=== PATIENT | female | born 1990 | race American Indian/Alaskan Native ===

== ENCOUNTER 2017-06-20 23:31 | Emergency (ER) | payer BC, MEDICAID ==
[2017-06-20 23:31] VITALS: BMI 21.1
[2017-06-20 23:39] VITALS: BP 121/82; PULSE 67; RESP 16; TEMP 98.8; O2SAT 100
--- NOTE | 2017-06-21 00:01 | C.PDOC ---
History Of Present Illness The patient reports pain to the left ankle over the past 1 day. The patient reports that the pain progressively worsened over the past day, and is associated with swelling prompting visit. Denies trauma, numbness, weakness. Time Seen by Provider: 06/20/17 23:41 Chief Complaint (Nursing): Lower Extremity Problem/Injury History Per: Patient History/Exam Limitations: no limitations Onset/Duration Of Symptoms: Persistent Current Symptoms Are (Timing): Still Present Recent travel outside of the [place]: No - Ankle/Foot Alleviating Factor(s): Elevation Past Medical History Reviewed: Historical Data, Nursing Documentation, Vital Signs Vital Signs: Last Vital Signs Temp 98.8 F 06/20/17 23:36 Pulse 67 06/20/17 23:36 Resp 16 06/20/17 23:36 BP 121/82 06/20/17 23:36 Pulse Ox 100 06/21/17 00:31 - Medical History PMH: Asthma Denies: Chronic Kidney Disease Surgical History: Tonsillectomy (2016) Other Surgeries: Spine surgery Family History: States: Unknown Family Hx - Social History Hx Tobacco Use: Yes Hx Alcohol Use: Yes Hx Substance Use: Yes - Immunization History Hx Tetanus Toxoid Vaccination: No Hx Influenza Vaccination: Yes Hx Pneumococcal Vaccination: No Review Of Systems Constitutional: Negative for: Fever, Weakness Cardiovascular: Negative for: Edema Musculoskeletal: Positive for: Back Pain (after back surgery), Foot Pain Skin: Negative for: Rash Neurological: Negative for: Weakness, Numbness Physical Exam - Physical Exam Appears: Non-toxic, No Acute Distress Skin: Normal Color, Warm, No Rash Head: Atraumatic, Normacephalic Eye(s): bilateral: Normal Inspection Oral Mucosa: Moist Neck: Normal Extremity: No Calf Tenderness, Capillary Refill (< 2 sec), No Deformity, Other ( (+) mild swelling and tenderness to the lateral left ankle and foot. Normal ROM) Pulses: Left Dorsalis Pedis: Normal, Right Dorsalis Pedis: Normal Neurological/Psych: Oriented x3, Normal Motor, Normal Sensation Gait: Steady ED Course And Treatment O2 Sat by Pulse Oximetry: 100 (on RA) Pulse Ox Interpretation: Normal Medical Decision Making Medical Decision Making: Xrays of the foot and ankle are negative for fracture. There is possibility for sprain. Air cast and crutches were given to the patient. Patient was instructed to follow up with the Orthopedist within 1-2 days. Return if worsened, Disposition - Disposition Referrals: Rossy Curran MD [Staff Provider] - Disposition: HOME/ ROUTINE Disposition Time: 00:15 Condition: GOOD Additional Instructions: Follow up with the Orthopedist within 1-2 days. Return if worsened, Instructions: Ankle Sprain (ED) Forms: [facility] (Tanzanian) - Clinical Impression Clinical Impression: Ankle sprain
--- NOTE | 2017-06-21 08:08 | RAD ---
PROCEDURE: Left Ankle Radiographs. HISTORY: pain to the lateral foot and ankle COMPARISON: None FINDINGS: BONES: Normal. No fracture. JOINTS: Normal. No osteoarthritis. Ankle mortise maintained. Talar dome intact SOFT TISSUES: Lateral soft tissue swelling OTHER FINDINGS: None. IMPRESSION: No fracture. Lateral soft tissue swelling
--- NOTE | 2017-06-21 08:13 | RAD ---
PROCEDURE: Left Foot Radiographs. HISTORY: lateral foot swelling and pain COMPARISON: None. FINDINGS: BONES: No displaced fracture. No dislocation. Trabecular marking prominence versus a nondisplaced trabecular microfracture of the medial navicular bone is perceived. Most of the arrows delineating the area of concern appear distal to this site. There is some mild hindfoot medial soft tissue swelling present. Clinical correlation is essential regarding any further imaging decisions JOINTS: Normal. SOFT TISSUES: Normal. OTHER FINDINGS: None. IMPRESSION: No displaced fractures. No dislocation. Medial navicular bone appearance indeterminate regardingtrabecular marking prominence versus a nondisplaced trabecular microfracture of the medial navicular bone.
== END 2017-06-21 00:59 | disposition home or self-care (01) ==
LOC: C.ER 23:31
DX: S93.402A Sprain of unspecified ligament of left ankle, initial encounter (principal); X58.XXXA Exposure to other specified factors, initial encounter

== ENCOUNTER 2017-06-28 17:44 | Emergency (ER) | payer BC, MEDICAID ==
[2017-06-28 17:59] VITALS: BMI 21.6
[2017-06-28 18:47] LABS: RBC URINE 9 /hpf (0-3); URINE BACTERIA RARE (<OCC); URINE BILIRUBIN NEGATIVE (NEGATIVE); URINE BLOOD 2+ (NEGATIVE); URINE COLOR Yellow (YELLOW); URINE GLUCOSE (UA) NORMAL (Normal); URINE KETONE 2+ mg/dL (NEGATIVE); URINE LEUKOCYTE ESTERASE NEG Leu/uL (Negative); URINE PROTEIN 1+ mg/dL (NEGATIVE); URINE UROBILINOGEN NORMAL mg/dL (0.2-1.0); WBC URINE 3 /hpf (0-5)
--- NOTE | 2017-06-28 19:20 | C.PDOC ---
History Of Present Illness Patient presents to the ED with complaints of nausea, abdominal pain, generalized malaise, and constipation since yesterday. Patient states symptoms began when when she had chicken at a barbeque. She also notes rectal bleeding and "thinks its hemorrhoids." Patient denies fever, chills, or vomiting. Time Seen by Provider: 06/28/17 19:19 Chief Complaint (Nursing): Weakness/Neurological Deficit History Per: Patient History/Exam Limitations: no limitations Onset/Duration Of Symptoms: Days (1 day ) Current Symptoms Are (Timing): Still Present Context: Food Severity: Moderate Pain Scale Rating Of: 4 Location Of Pain/Discomfort: Epigastric Radiation Of Pain To:: None Quality Of Discomfort: "Pain" Associated Symptoms: Nausea, Constipation. denies: Fever, Chills, Vomiting, Diarrhea Exacerbating Factors: None Recent travel outside of the [place]: No Abnormal Vaginal Bleeding: No Past Medical History Reviewed: Historical Data, Nursing Documentation, Vital Signs Vital Signs: Last Vital Signs Temp 99.9 F H 06/28/17 20:07 Pulse 76 06/28/17 20:07 Resp 20 06/28/17 20:07 BP 101/56 L 06/28/17 21:33 Pulse Ox 100 06/28/17 23:29 - Medical History PMH: Asthma Surgical History: Tonsillectomy (2016) Family History: States: Unknown Family Hx - Social History Hx Tobacco Use: Yes Hx Alcohol Use: Yes Hx Substance Use: Yes - Immunization History Hx Tetanus Toxoid Vaccination: No Hx Influenza Vaccination: Yes Hx Pneumococcal Vaccination: No Review Of Systems Constitutional: Negative for: Fever, Chills Cardiovascular: Negative for: Chest Pain Respiratory: Negative for: Shortness of Breath Gastrointestinal: Positive for: Nausea, Abdominal Pain, Constipation. Negative for: Vomiting, Diarrhea Physical Exam - Physical Exam Appears: Non-toxic, No Acute Distress Skin: Warm, Dry Head: Normacephalic Eye(s): bilateral: Normal Inspection Oral Mucosa: Dry Neck: Supple Chest: Symmetrical Cardiovascular: Rhythm Regular Respiratory: No Rales, No Rhonchi, No Wheezing Gastrointestinal/Abdominal: Soft, Tenderness (mild epigastric tenderness), No Distention, No Guarding, No Rebound Rectal: No Hemorrhoids (with RN Cristine Workman present) Back: No CVA Tenderness Extremity: Normal ROM Extremity: Bilateral: Atraumatic, Normal Color And Temperature, Normal ROM Pulses: Left Dorsalis Pedis: Normal, Right Dorsalis Pedis: Normal Neurological/Psych: Oriented x3, Normal Speech, Normal Cognition Gait: Steady ED Course And Treatment - Laboratory Results Result Diagrams: 06/28/17 19:46 06/28/17 19:46 O2 Sat by Pulse Oximetry: 100 (room air ) Pulse Ox Interpretation: Normal Progress Note: Labs were ordered and patient was given Pepcid, Toradol, Zofran, and IV fluids. Reevaluation Time: 23:26 Medical Decision Making Medical Decision Making: Upon provider reevaluation patient is feeling better, is medically stable, and requires no further treatment in the ED at this time. Patient will be discharged home with Rx for flagyl and miralax. Counseling was provided and all questions were answered regarding diagnosis and need for follow up with the referred clinic. There is agreement to discharge plan. Return if symptoms persist or worsen. Disposition Counseled Patient/Family Regarding: Studies Performed, Diagnosis, Need For Followup, Rx Given - Disposition Referrals: [facility] [Outside] [facility] [Outside] Disposition: HOME/ ROUTINE Disposition Time: 19:20 Condition: FAIR Additional Instructions: Please return if symptoms recur. May need to have an ultrasound to check on the gallbladder(gallbladder sludge) Prescriptions: Metronidazole [Flagyl] 500 mg PO DAILY #21 tablet Polyethylene Glycol 3350 [Miralax] 17 gm PO DAILY #270 ml Instructions: Gas and Bloating (ED), Abdominal Pain (ED) Forms: [facility] (Cook Islander) - Clinical Impression Clinical Impression: Abdominal pain, Constipation - Scribe Statement The provider has reviewed the documentation as recorded by the Scribmahesh Emmanuel All medical record entries made by the Scribe were at my direction and personally dictated by me. I have reviewed the chart and agree that the record accurately reflects my personal performance of the history, physical exam, medical decision making, and the department course for this patient. I have also personally directed, reviewed, and agree with the discharge instructions and disposition.
[2017-06-28] MEDS ORDERED: Sodium Chloride 0.9% 2,000 ML IV ONE (19:37)
[2017-06-28 19:50] LABS: BASO % 0.2 % (0.0-2.0); EOS % 0.1 % (0.0-4.0); HEMATOCRIT 40.8 % (34.0-47.0); LYMPH # 1.2 K/uL (1.0-4.3); LYMPH % 11.2 % (20.0-40.0); MEAN CELL VOLUME 92.7 fL (81.0-99.0); MEAN CORPUSCULAR HEMOGLOBIN 31.1 pg (27.0-31.0); MEAN CORPUSCULAR HGB CONC 33.6 g/dL (33.0-37.0); MEAN PLATELET VOLUME 9.7 fL (7.2-11.7); MONO # 0.6 K/uL (0.0-0.8); MONO % 5.3 % (0.0-10.0); RED CELL DISTRIBUTION WIDTH 12.5 % (11.5-14.5)
[2017-06-28] MEDS ORDERED: Sodium Chloride 0.9% 1,000 ML ONE ×3 (19:50→23:04)
[2017-06-28 20:01] LABS: CHLORIDE 102 mmol/L (98-107); SODIUM 138 mmol/L (132-148)
[2017-06-28 20:02] LABS: POTASSIUM 3.9 mmol/L (3.6-5.2)
[2017-06-28 20:04] LABS: ALB/GLOB RATIO 1.1 (1.0-2.1); ALKALINE PHOSPHATASE 51 U/L (38-126); ALT/SGPT 33 U/L (9-52); AST/SGOT 22 U/L (14-36); BILIRUBIN,TOTAL 0.6 mg/dL (0.2-1.3); BLOOD UREA NITROGEN 12 mg/dL (7-17); CARBON DIOXIDE 22 mmol/L (22-30); GFR AFRICAN-AMERICAN > 60; GLUCOSE,RANDOM 73 mg/dL (65-105); TOTAL PROTEIN 8.6 g/dL (6.3-8.3)
[2017-06-28 20:05] LABS: CALCIUM 9.5 mg/dl (8.6-10.4)
[2017-06-28] MEDS ORDERED: Sodium Chloride 0.9% 1,000 ML IV ONE (23:05)
--- NOTE | 2017-06-28 23:20 | CT ---
EXAM: CT Abdomen and Pelvis Without Intravenous Contrast CLINICAL HISTORY: 26 years old, female; Pain and signs and symptoms; Nausea; Abdominal pain; Epigastric; Additional info: Abd pain, midepigastric TECHNIQUE: Axial computed tomography images of the abdomen and pelvis without intravenous contrast. All CT scans at this facility use one or more dose reduction techniques, viz.: automated exposure control; ma/kV adjustment per patient size (including targeted exams where dose is matched to indication; i.e. head); or iterative reconstruction technique. Coronal and sagittal reformatted images were created and reviewed. COMPARISON: No relevant prior studies available. Examination is limited secondary to the lack of intra-abdominal fat. FINDINGS: Lower thorax: The bilateral lung bases are clear. ABDOMEN: Liver: Steatosis. Gallbladder and bile ducts: The gallbladder is minimally distended, without calcified stones. Layering sludge is identified. No intra-extrahepatic biliary ductal dilation. Pancreas: Limited evaluation secondary to the lack of intravenous contrast. Spleen: No acute findings. Adrenals: No acute findings. Kidneys and ureters: No obstructing stones. No hydronephrosis. PELVIS: Bladder: No acute findings. Reproductive: No acute findings. Appendix: The appendix is not definitively visualized, however no pericecal inflammatory change is identified to suggest the presence of acute appendicitis. ABDOMEN and PELVIS: Stomach and bowel: Limited evaluation without intravenous / PO contrast or intra-abdominal fat. Peritoneum: No acute findings. Lymph nodes: Limited evaluation without intravenous contrast. Vasculature: No aortic aneurysm. Bones: No acute fracture. IMPRESSION: Limited examination secondary to the lack of oral or intravenous contrast, as well as the lack of intra-abdominal fat demonstrates layering sludge within the gallbladder. If patient is clinically able (and clinical suspicion persists) and, ultrasound examination of the right upper quadrant may be performed for further evaluation.
[2017-06-29] VITALS: BP 100/61; PULSE 78; RESP 18; TEMP 98; O2SAT 98
== END 2017-06-29 00:22 | disposition home or self-care (01) ==
LOC: C.ER 17:44
DX: K59.00 Constipation, unspecified (principal); R10.9 Unspecified abdominal pain
CPT/HCPCS: 74176; 80053; 81001; 83690; 84703; 85025; 96361; 96374; 96375; 99285; J1885; J2270; J2405; J7040

== ENCOUNTER 2017-10-03 21:03 | Emergency (ER) | payer BC, MEDICAID ==
[2017-10-03 21:04] VITALS: BMI 21.6
[2017-10-03] MEDS ORDERED: DiphenhydrAMINE 50 mg/ml Inj IVP STA (21:50)
[2017-10-03] MEDS ORDERED: DiphenhydrAMINE 50 mg/ml Inj ONE (22:10)
[2017-10-03 22:40] LABS: BASO % 0.4 % (0.0-2.0); EOS # 0.5 K/uL (0.0-0.7); EOS % 5.3 % (0.0-4.0); HEMATOCRIT 38.2 % (34.0-47.0); LYMPH # 1.6 K/uL (1.0-4.3); LYMPH % 16.6 % (20.0-40.0); MEAN CELL VOLUME 92.1 fL (81.0-99.0); MEAN CORPUSCULAR HEMOGLOBIN 30.9 pg (27.0-31.0); MEAN CORPUSCULAR HGB CONC 33.5 g/dL (33.0-37.0); MEAN PLATELET VOLUME 9.2 fL (7.2-11.7); MONO # 0.7 K/uL (0.0-0.8); MONO % 7.2 % (0.0-10.0); RED CELL DISTRIBUTION WIDTH 12.8 % (11.5-14.5); WHITE BLOOD COUNT 9.5 K/uL (4.8-10.8)
--- NOTE | 2017-10-03 22:42 | C.PDOC ---
History Of Present Illness 26 year old female presents to the ER with a complaint of a headache and photophobia that began yesterday morning, associated with a productive cough and subjective fever. Denies nausea, vomiting, or Hx of headaches. Patient is S/ P cholestectomy on 09/30/17 at [facility]. Mother states patient had a back surgery a few months ago and had similar symptoms afterwards. Time Seen by Provider: 10/03/17 21:33 Chief Complaint (Nursing): Headache History Per: Patient History/Exam Limitations: no limitations Onset/Duration Of Symptoms: Days Current Symptoms Are (Timing): Still Present Preceeding Symptoms: None Associated Symptoms: Photophobia. denies: Blurred Vision, Nausea, Vomiting, Extremity Weakness Recent travel outside of the [place]: No Past Medical History Reviewed: Historical Data, Nursing Documentation, Vital Signs Vital Signs: Last Vital Signs Temp 99.5 F 10/04/17 04:25 Pulse 84 10/04/17 04:25 Resp 18 10/04/17 04:25 BP 128/64 10/04/17 04:25 Pulse Ox 97 10/04/17 04:25 - Medical History PMH: Asthma Surgical History: Cholecystectomy (09/2017), Tonsillectomy (2015) Family History: States: Unknown Family Hx - Social History Hx Tobacco Use: Yes Hx Alcohol Use: Yes Hx Substance Use: Yes - Immunization History Hx Tetanus Toxoid Vaccination: No Hx Influenza Vaccination: Yes Hx Pneumococcal Vaccination: No Review Of Systems Constitutional: Positive for: Fever (Subjective) Eyes: Negative for: Vision Change Respiratory: Positive for: Cough (Productive) Gastrointestinal: Negative for: Nausea, Vomiting Physical Exam - Physical Exam Appears: Non-toxic Skin: Normal Color, Warm, Dry Head: Atraumatic, Normacephalic Eye(s): bilateral: Normal Inspection, PERRL, EOMI Oral Mucosa: Moist Neck: Normal, Supple Chest: Symmetrical, No Tenderness Cardiovascular: Rhythm Regular Respiratory: Normal Breath Sounds, No Rales, No Rhonchi, No Wheezing Gastrointestinal/Abdominal: Soft, No Tenderness Neurological/Psych: Oriented x3, Normal Speech ED Course And Treatment - Laboratory Results Result Diagrams: 10/04/17 03:09 10/03/17 22:32 Pulse Ox Interpretation: Normal Progress Note: pt has been resting / sleeping for the past few hours. No distress. Headache imrpoved. Medical Decision Making Medical Decision Making: Plan: * CMP * UDS * CBC * Upreg * UA * Benadryl * Reglan * Toradol On reevaluation, patient reports improvement of pain, feels comfortable being discharged home. Disposition - Disposition Referrals: [facility] [Outside] [facility] [Outside] [facility] [place] [Outside] [facility] [Outside] Disposition: HOME/ ROUTINE Disposition Time: 06:17 Condition: GOOD Additional Instructions: follow up with surgeon as directed and with pmd. Instructions: Acute Headache (ED) Forms: [employer] (Spanish) - Clinical Impression Clinical Impression: Migraine - Scribe Statement The provider has reviewed the documentation as recorded by the Scribe Jett Tilley All medical record entries made by the Sonjaibe were at my direction and personally dictated by me. I have reviewed the chart and agree that the record accurately reflects my personal performance of the history, physical exam, medical decision making, and the department course for this patient. I have also personally directed, reviewed, and agree with the discharge instructions and disposition.
[2017-10-03 22:51] LABS: ALB/GLOB RATIO 0.8 (1.0-2.1); ALKALINE PHOSPHATASE 46 U/L (38-126); ALT/SGPT 45 U/L (9-52); AST/SGOT 16 U/L (14-36); BILIRUBIN,TOTAL 0.4 mg/dL (0.2-1.3); BLOOD UREA NITROGEN 8 mg/dL (7-17); CALCIUM 8.3 mg/dl (8.6-10.4); CARBON DIOXIDE 33 mmol/L (22-30); CHLORIDE 101 mmol/L (98-107); GFR AFRICAN-AMERICAN > 60; GLUCOSE,RANDOM 105 mg/dL (65-105); POTASSIUM 3.4 mmol/L (3.6-5.2); SODIUM 137 mmol/L (132-148); TOTAL PROTEIN 7.9 g/dL (6.3-8.3)
[2017-10-03 23:10] LABS: RBC URINE 15 /hpf (0-3); URINE BACTERIA OCC (<OCC); URINE BILIRUBIN NEGATIVE (NEGATIVE); URINE BLOOD 2+ (NEGATIVE); URINE COLOR Yellow (YELLOW); URINE GLUCOSE (UA) NORMAL (Normal); URINE KETONE NEGATIVE (NEGATIVE); URINE LEUKOCYTE ESTERASE 3+ Leu/uL (Negative); URINE PROTEIN NEGATIVE (NEGATIVE); URINE UROBILINOGEN NORMAL mg/dL (0.2-1.0); WBC URINE 18 /hpf (0-5)
[2017-10-04 02:47] VITALS: RESP 18
[2017-10-04 03:17] LABS: BASO % 0.4 % (0.0-2.0); EOS # 0.5 K/uL (0.0-0.7); EOS % 5.5 % (0.0-4.0); HEMATOCRIT 37.6 % (34.0-47.0); LYMPH # 1.7 K/uL (1.0-4.3); LYMPH % 18.4 % (20.0-40.0); MEAN CELL VOLUME 91.5 fL (81.0-99.0); MEAN CORPUSCULAR HEMOGLOBIN 30.7 pg (27.0-31.0); MEAN CORPUSCULAR HGB CONC 33.6 g/dL (33.0-37.0); MEAN PLATELET VOLUME 9.4 fL (7.2-11.7); MONO # 0.6 K/uL (0.0-0.8); MONO % 6.7 % (0.0-10.0); RED CELL DISTRIBUTION WIDTH 12.6 % (11.5-14.5); WHITE BLOOD COUNT 9.5 K/uL (4.8-10.8)
[2017-10-04 03:32] LABS: INR 1.2
[2017-10-04] MEDS ORDERED: Morphine 4 MG/ML VIAL ONE (04:21)
--- NOTE | 2017-10-04 04:29 | CT ---
EXAM: CT Cervical Spine Without Intravenous Contrast CLINICAL HISTORY: 26 years old, female; Pain; Neck pain; Prior surgery; Surgery type: Lower abd; Patient HX: 05-23-16; Additional info: Headache TECHNIQUE: Axial computed tomography images of the cervical spine without intravenous contrast. All CT scans at this facility use one or more dose reduction techniques, viz.: automated exposure control; ma/kV adjustment per patient size (including targeted exams where dose is matched to indication; i.e. head); or iterative reconstruction technique. Coronal and sagittal reformatted images were created and reviewed. COMPARISON: CT - NECK SOFT TISSUE W/O CONTRAST 2016-05-23 19:48 FINDINGS: Artifacts: Overlying clothing artifact. Artifacts from hair piece. Vertebrae: Unremarkable. No acute fracture. Discs/spinal canal/neural foramina: No acute findings. No spinal canal stenosis. Soft tissues: Unremarkable. Thyroid: Mild prominence of thyroid gland. Lung apices: Unremarkable. IMPRESSION: There is no acute fracture of cervical spine.
--- NOTE | 2017-10-04 04:33 | CT ---
EXAM: CT Head Without Intravenous Contrast CLINICAL HISTORY: 26 years old, female; Pain; Headache; Prior surgery; Surgery type: Lower abd; Patient HX: 05-23-16 TECHNIQUE: Axial computed tomography images of the head/brain without intravenous contrast. All CT scans at this facility use one or more dose reduction techniques, viz.: automated exposure control; ma/kV adjustment per patient size (including targeted exams where dose is matched to indication; i.e. head); or iterative reconstruction technique. 723 images are submitted. Coronal and sagittal reformatted images were created and reviewed. COMPARISON: CT - HEAD W/O CONTRAST 2016-05-23 19:46 FINDINGS: Brain: Unremarkable. No hemorrhage. No significant white matter disease. No edema. Ventricles: Unremarkable. No ventriculomegaly. Bones/joints: Unremarkable. No acute fracture. Soft tissues: There is scattered calcific density involving the subcutaneous soft tissues likely representing calcifications. Sinuses: Unremarkable. No acute sinusitis. Mastoid air cells: Unremarkable. No mastoid effusion. Orbits: The globe and lens are intact. IMPRESSION: No evidence of an acute intracranial hemorrhage, midline shift or mass effect is identified.
[2017-10-04 06:42] VITALS: BP 104/62; PULSE 62; TEMP 99.3; O2SAT 99
--- NOTE | 2017-10-04 08:59 | RAD ---
HISTORY: Shortness of breath COMPARISON: 07/22/2016 TECHNIQUE: Chest PA and lateral FINDINGS: LUNGS: No focal infiltrate or effusion. Bibasilar breast and nipple shadows. PLEURA: No significant pleural effusion identified. No pneumothorax apparent. CARDIOVASCULAR: Normal. OSSEOUS STRUCTURES: No significant abnormalities. VISUALIZED UPPER ABDOMEN: Normal. OTHER FINDINGS: None. IMPRESSION: No focal infiltrate or effusion. Bibasilar breast and nipple shadows.
== END 2017-10-04 06:42 | disposition home or self-care (01) ==
LOC: C.ER 21:03
DX: G43.909 Migraine, unspecified, not intractable, without status migrainosus (principal)
CPT/HCPCS: 70450; 71020; 72125; 80053; 81001; 83690; 84703; 85025; 85610; 85730; 96374; 96375; 99285; G0480; J1200; J1885; J2270; J2405; J2765

== ENCOUNTER 2017-11-12 18:45 | Emergency (ER) | payer BC, MEDICAID ==
[2017-11-12 18:46] VITALS: BMI 21.6
--- NOTE | 2017-11-12 20:11 | C.PDOC ---
History Of Present Illness Patient presents to the ER with a complaint of abdominal pain and purulent discharge coming from her umbilicus. Patient had a lap onelia done on 09/30/17 and since then has noticed increased swelling to the periumbilical area. Denies fever or chills. Time Seen by Provider: 11/12/17 20:11 Chief Complaint (Nursing): Abdominal Pain History Per: Patient History/Exam Limitations: no limitations Onset/Duration Of Symptoms: Days Current Symptoms Are (Timing): Still Present Severity: Moderate Pain Scale Rating Of: 4 Location Of Pain/Discomfort: Periumbilical Radiation Of Pain To:: None Quality Of Discomfort: Unable To Describe Associated Symptoms: denies: Fever, Chills Exacerbating Factors: None Alleviating Factors: None Last Bowel Movement: Today Recent travel outside of the [place]: No Additional History Per: Patient Abnormal Vaginal Bleeding: No Past Medical History Reviewed: Historical Data, Nursing Documentation, Vital Signs Vital Signs: Last Vital Signs Temp 98.8 F 11/12/17 22:01 Pulse 75 11/12/17 22:01 Resp 20 11/12/17 22:01 BP 100/61 11/12/17 22:01 Pulse Ox 100 11/12/17 23:08 - Medical History PMH: Asthma Surgical History: Cholecystectomy (09/2017), Tonsillectomy (2015) Family History: States: No Known Family Hx - Social History Hx Tobacco Use: Yes Hx Alcohol Use: Yes Hx Substance Use: Yes - Immunization History Hx Tetanus Toxoid Vaccination: No Hx Influenza Vaccination: Yes Hx Pneumococcal Vaccination: No Review Of Systems Constitutional: Negative for: Fever, Chills Cardiovascular: Negative for: Chest Pain Respiratory: Negative for: Shortness of Breath Gastrointestinal: Positive for: Abdominal Pain, Other (Periumbilical swelling, Umbilical discharge) Physical Exam - Physical Exam Appears: Non-toxic Skin: Warm, Dry Head: Normacephalic Eye(s): bilateral: Normal Inspection Oral Mucosa: Moist Chest: Symmetrical, No Tenderness Cardiovascular: Rhythm Regular Respiratory: No Rales, No Rhonchi, No Wheezing Gastrointestinal/Abdominal: Soft, Tenderness (Foul smelling purulen discharge from the umbilicus with 5x7cm area of induration and mild erythema.), Other ( Foul smelling purulen discharge from the umbilicus ) Back: Normal Inspection Extremity: Normal ROM Extremity: Bilateral: Atraumatic Neurological/Psych: Oriented x3, Normal Speech, Normal Cognition Gait: Steady ED Course And Treatment - Laboratory Results Result Diagrams: 11/12/17 20:32 11/12/17 20:32 O2 Sat by Pulse Oximetry: 100 (Room air) Pulse Ox Interpretation: Normal Progress Note: CT abd/pel, blood work, and urinalysis ordered. Benadryl, solumedrol, and toradol administered. Reevaluation Time: 23:05 Reassessment Condition: Improved Disposition Counseled Patient/Family Regarding: Studies Performed, Diagnosis, Need For Followup, Rx Given - Disposition Referrals: Guillermo Grover MD [Staff Provider] - Disposition: HOME/ ROUTINE Disposition Time: 20:11 Condition: FAIR Additional Instructions: Please follow up with your surgeon Prescriptions: Cephalexin [Keflex] 500 mg PO TID #21 capsule Sulfamethoxazole/Trimethoprim [Bactrim DS 800 mg-160 mg] 1 tab PO BID #14 tab Instructions: Cellulitis (DC) Forms: [employer] (Greek) - Clinical Impression Clinical Impression: Abdominal wall pain, Cellulitis - Scribe Statement The provider has reviewed the documentation as recorded by the Scribe Jett Tilley All medical record entries made by the Scribe were at my direction and personally dictated by me. I have reviewed the chart and agree that the record accurately reflects my personal performance of the history, physical exam, medical decision making, and the department course for this patient. I have also personally directed, reviewed, and agree with the discharge instructions and disposition.
[2017-11-12] MEDS ORDERED: MethylPREDNISolone 40 mg Vial IVP STA (20:18)
[2017-11-12] MEDS ORDERED: DiphenhydrAMINE 50 mg/ml Inj IVP STA (20:18)
[2017-11-12 20:35] LABS: BASO # 0.1 K/uL (0.0-0.2); BASO % 0.7 % (0.0-2.0); EOS # 0.4 K/uL (0.0-0.7); EOS % 3.9 % (0.0-4.0); HEMOGLOBIN 12.5 g/dL (11.0-16.0); LYMPH # 2.6 K/uL (1.0-4.3); LYMPH % 23.6 % (20.0-40.0); MEAN CELL VOLUME 91.9 fL (81.0-99.0); MEAN CORPUSCULAR HEMOGLOBIN 30.8 pg (27.0-31.0); MEAN CORPUSCULAR HGB CONC 33.5 g/dL (33.0-37.0); MEAN PLATELET VOLUME 8.9 fL (7.2-11.7); MONO # 1.1 K/uL (0.0-0.8); MONO % 10.3 % (0.0-10.0); NEUT # 6.9 K/uL (1.8-7.0); NEUT % 61.5 % (50.0-75.0); NRBC % 0.1 % (0.0-2.0); RBC 4.05 Mil/uL (3.80-5.20); RED CELL DISTRIBUTION WIDTH 13.2 % (11.5-14.5); WHITE BLOOD COUNT 11.1 K/uL (4.8-10.8)
[2017-11-12 20:47] LABS: ALT/SGPT 25 U/L (9-52); AST/SGOT 16 U/L (14-36); BLOOD UREA NITROGEN 9 mg/dL (7-17); CALCIUM 8.5 mg/dl (8.6-10.4); GFR AFRICAN-AMERICAN > 60; GFR NON-AFRICAN AMERICAN > 60; LIPASE 27 U/L (23-300)
[2017-11-12 20:58] LABS: INR 1.2; PROTHROMBIN TIME 13.2 SECONDS (9.7-12.2)
[2017-11-12 21:13] LABS: SQUAMOUS EPITHIAL 12 /hpf (0-5); URINE BACTERIA RARE (<OCC); URINE BILIRUBIN NEGATIVE (NEGATIVE); URINE BLOOD 1+ (NEGATIVE); URINE CLARITY Clear (Clear); URINE COLOR Amber (YELLOW); URINE GLUCOSE (UA) NORMAL (Normal); URINE LEUKOCYTE ESTERASE TRACE Leu/uL (Negative); URINE NITRATE NEGATIVE (NEGATIVE); URINE PROTEIN 1+ mg/dL (NEGATIVE)
[2017-11-12] MEDS ORDERED: DiphenhydrAMINE 50 mg/ml Inj ONE (21:13)
[2017-11-12 21:15] LABS: HCG,QUALITATIVE URINE NEGATIVE (NEGATIVE)
[2017-11-12 22:02] VITALS: TEMP 98.8
--- NOTE | 2017-11-12 22:56 | CT ---
EXAM: CT Abdomen and Pelvis With Intravenous Contrast CLINICAL HISTORY: 27 years old, female; Pain and signs and symptoms; Mass, lump, or swelling; Periumbilical; Abdominal pain; Generalized; Prior surgery; Surgery date: <1 month; Additional info: Abd pain , subumbilical abscess S/P onelia TECHNIQUE: Axial computed tomography images of the abdomen and pelvis with intravenous contrast. All CT scans at this facility use one or more dose reduction techniques, viz.: automated exposure control; ma/kV adjustment per patient size (including targeted exams where dose is matched to indication; i.e. head); or iterative reconstruction technique. Coronal and sagittal reformatted images were created and reviewed. CONTRAST: 100 mL of [id number] administered intravenously. COMPARISON: No relevant prior studies available. FINDINGS: Lower thorax: No acute findings. ABDOMEN: Liver: Unremarkable. No mass. Gallbladder and bile ducts: Cholecystectomy. No ductal dilation. Pancreas: Unremarkable. No mass. No ductal dilation. Spleen: Unremarkable. No splenomegaly. Adrenals: Unremarkable. No mass. Kidneys and ureters: Unremarkable. No solid mass. No hydronephrosis. Stomach and bowel: Unremarkable. No obstruction. Appendix: No findings to suggest acute appendicitis. PELVIS: Bladder: Unremarkable. No mass. Reproductive: Unremarkable as visualized. ABDOMEN and PELVIS: Intraperitoneal space: Trace fluid in pelvis. No free air. Bones/joints: No acute fracture. No dislocation. Soft tissues: Inflammatory changes deep to the umbilicus, without evidence of drainable fluid collection or abscess. Vasculature: Unremarkable. No abdominal aortic aneurysm. Lymph nodes: Unremarkable. No enlarged lymph nodes. IMPRESSION: 1. Localized cellulitis at level of umbilicus. No discrete abscess. 2. Remainder of findings as above.
[2017-11-12] MEDS ORDERED: Piperacillin/Tazobact 3.375 gm 100 ML IVPB STA (23:09)
[2017-11-12 23:10] VITALS: O2SAT 100
[2017-11-12] MEDS ORDERED: Piperacillin/Tazobact 3.375 gm 100 ML IVPB ONE (23:14)
[2017-11-12] MEDS ORDERED: Iodixanol 320 MG/ML 100 ML BOTTLE IV ONE (23:21)
[2017-11-12 23:57] VITALS: BP 108/60; PULSE 74; RESP 15
== END 2017-11-12 23:57 | disposition home or self-care (01) ==
LOC: C.ER 18:45
DX: L03.311 Cellulitis of abdominal wall (principal); R10.9 Unspecified abdominal pain; Z90.49 Acquired absence of other specified parts of digestive tract
CPT/HCPCS: 74177; 80053; 81001; 83690; 84703; 85025; 85610; 85730; 96365; 96375; 99285; J1200; J1885; J2543; J2920; Q9967

== ENCOUNTER 2018-01-16 12:24 | Emergency (ER) | payer MEDICAID ==
[2018-01-16 12:24] VITALS: BMI 21.6
[2018-01-16 12:31] VITALS: BP 136/76; PULSE 99; RESP 18; TEMP 99.5; O2SAT 100
[2018-01-16] MEDS ORDERED: Albuterol-Ipratrop 3 mg / 0.5 (3 ml) UD INH STA ×2 (13:01→13:52)
--- NOTE | 2018-01-16 13:09 | C.PDOC ---
History Of Present Illness 27 y/o female, w/PMhx of asthma, c/o 102 F fever,runny nose, sore throat, cough , SOB and chest tightness which became worse over the past 2 days.Patient states that she took OTC meds w/no improvement. She had a recent sick contact. Denies abdominal pain, n/v/d. HPI: Influenza Time Seen by Provider: 01/16/18 12:35 Chief Complaint: Flu-like Symptoms History Per: Patient Exam Limitations: no limitations Onset/Duration Of Symptoms: Days Symptoms include: fever, sore throat, cough Risk factors for flu complications: No: adult > 65 years, obesity (BMI > 40) Past Medical History Reviewed: Historical Data, Nursing Documentation, Vital Signs Vital Signs: Last Vital Signs Temp 99.5 F 01/16/18 12:28 Pulse 99 H 01/16/18 12:28 Resp 18 01/16/18 12:28 BP 136/76 01/16/18 12:28 Pulse Ox 100 01/16/18 12:28 - Medical History PMH: Asthma Denies: Chronic Kidney Disease Surgical History: Cholecystectomy (09/2017), Tonsillectomy (2015) Family History: States: No Known Family Hx - Social History Hx Tobacco Use: Yes Hx Alcohol Use: Yes Hx Substance Use: Yes - Immunization History Hx Tetanus Toxoid Vaccination: No Hx Influenza Vaccination: Yes Hx Pneumococcal Vaccination: No Review Of Systems Constitutional: Positive for: Fever. Negative for: Chills ENT: Positive for: Nose Discharge, Throat Pain Cardiovascular: Positive for: Other (chest tightness) Respiratory: Positive for: Cough, Shortness of Breath Gastrointestinal: Negative for: Nausea, Vomiting, Abdominal Pain, Diarrhea Physical Exam - Physical Exam Appears: Non-toxic, Other (uncomfortable) Skin: Warm, Dry Head: Atraumatic, Normacephalic Eye(s): bilateral: Normal Inspection Ear(s): Bilateral: Normal Nose: Discharge (clear discharge) Oral Mucosa: Moist Throat: Normal, No Erythema, No Exudate Neck: Supple Chest: Symmetrical, No Tenderness Cardiovascular: Rhythm Regular Respiratory: Decreased Breath Sounds (b/l bases ), Rhonchi (scattered rhonchi in left base), No Wheezing Neurological/Psych: Oriented x3, Normal Speech, Normal Motor, Normal Sensation Medical Decision Making Medical Decision Making: Plan: --CXR --Duoneb --Tamiflu PO --Tylenol PO 235 pm pt felling much better, no more chest tightness, no more reproducible chest pain. d/c home with tamiflu. tylenol and albuterol mdi. f/u pmd. - ECG O2 Sat by Pulse Oximetry: 100 (RA) Pulse Ox Interpretation: Normal Disposition Counseled Patient/Family Regarding: Studies Performed, Diagnosis, Need For Followup, Rx Given - Disposition Referrals: Lashawn Rodriguez MD [Staff Provider] - Disposition: HOME/ ROUTINE Disposition Time: 14:33 Condition: IMPROVED Additional Instructions: Take Tamiflu as prescribed. 2-4 puffs from inhaler every 4-6 hours. Tylenol or Motrin for pain or ever. Increase fluid intake, increase bed rest. Follow up with Dr Rodriguez in a few days/ Prescriptions: Acetaminophen [Tylenol 325mg tab] 650 mg PO Q4 #50 tab Albuterol HFA [Ventolin HFA 90 mcg/actuation (8 g)] 2 puff IH Q6 #1 inhaler Oseltamivir Phosphate [Tamiflu] 75 mg PO BID #9 capsule Instructions: Influenza (ED) Forms: General Discharge Instructions, [facility] (Slovenian), Work Excuse - Clinical Impression Clinical Impression: Influenza-like illness - Scribe Statement The provider has reviewed the documentation as recorded by the Sonjaibmahesh Harvey Provider Attestation All medical record entries made by the Sonjaibmahesh were at my direction and personally dictated by me. I have reviewed the chart and agree that the record accurately reflects my personal performance of the history, physical exam, medical decision making, and the department course for this patient. I have also personally directed, reviewed, and agree with the discharge instructions and disposition.
[2018-01-16] MEDS ORDERED: Albuterol-Ipratrop 3 mg / 0.5 (3 ml) UD ONE ×2 (13:12→14:11)
--- NOTE | 2018-01-16 13:31 | RAD ---
HISTORY: cough fever asthma COMPARISON: 10/04/2017 TECHNIQUE: Chest PA and lateral FINDINGS: LUNGS: No active pulmonary disease. PLEURA: No significant pleural effusion identified. No pneumothorax apparent. CARDIOVASCULAR: Normal. OSSEOUS STRUCTURES: No significant abnormalities. VISUALIZED UPPER ABDOMEN: Normal. OTHER FINDINGS: None. IMPRESSION: No active disease. No significant interval change compared to the prior examination(s).
== END 2018-01-16 14:48 | disposition home or self-care (01) ==
LOC: C.ER 12:24
DX: J11.1 Influenza due to unidentified influenza virus with other respiratory manifestations (principal)

== ENCOUNTER 2018-05-24 20:01 | Emergency (ER) | payer MEDICAID, OTHER ==
[2018-05-24 20:02] VITALS: BMI 21.6
[2018-05-24 21:32] LABS: SQUAMOUS EPITHIAL 1 /hpf (0-5); URINE BILIRUBIN NEGATIVE (NEGATIVE); URINE BLOOD 2+ (NEGATIVE); URINE CLARITY Clear (Clear); URINE COLOR Yellow (YELLOW); URINE GLUCOSE (UA) NORMAL (Normal); URINE LEUKOCYTE ESTERASE TRACE Leu/uL (Negative); URINE PROTEIN NEGATIVE (NEGATIVE); URINE UROBILINOGEN NORMAL mg/dL (0.2-1.0)
[2018-05-24 21:37] LABS: HCG,QUALITATIVE URINE NEGATIVE (NEGATIVE)
--- NOTE | 2018-05-24 23:13 | C.PDOC ---
Time Seen by Provider: 05/24/18 20:24 Chief Complaint (Nursing): Female Genitourinary History Per: Patient Onset/Duration Of Symptoms: Days (1) Current Symptoms Are (Timing): Still Present Severity: Moderate Location Of Pain/Discomfort: Suprapubic Quality Of Discomfort: Cramping Exacerbating Factors: None Alleviating Factors: None Additional History Per: Prior Records Abnormal Vaginal Bleeding: Yes Past Medical History Reviewed: Historical Data, Nursing Documentation, Vital Signs Vital Signs: Last Vital Signs Temp 99 F 05/24/18 20:11 Pulse 65 05/24/18 20:11 Resp 20 05/24/18 20:11 BP 101/63 05/24/18 20:11 Pulse Ox 98 05/24/18 20:11 - Medical History PMH: Asthma Surgical History: Cholecystectomy (09/2017), Tonsillectomy (2015) Family History: States: Unknown Family Hx - Social History Hx Tobacco Use: Yes Hx Alcohol Use: Yes Hx Substance Use: Yes - Immunization History Hx Tetanus Toxoid Vaccination: No Hx Influenza Vaccination: Yes Hx Pneumococcal Vaccination: No Review Of Systems Except As Marked, All Systems Reviewed And Found Negative. Constitutional: Negative for: Fever, Weakness Cardiovascular: Negative for: Chest Pain Respiratory: Negative for: Shortness of Breath Gastrointestinal: Negative for: Vomiting, Diarrhea Genitourinary: Positive for: Vaginal Bleeding (spotting). Negative for: Dysuria Musculoskeletal: Negative for: Neck Pain, Back Pain Skin: Negative for: Rash Neurological: Negative for: Weakness, Numbness Physical Exam - Physical Exam Appears: Non-toxic, No Acute Distress Skin: Normal Color, Warm, Dry, No Rash Head: Atraumatic, Normacephalic Eye(s): bilateral: Normal Inspection, PERRL, EOMI Oral Mucosa: Moist Neck: Normal ROM, Supple Cardiovascular: Rhythm Regular Respiratory: Normal Breath Sounds, No Accessory Muscle Use Gastrointestinal/Abdominal: Soft, No Tenderness Back: No CVA Tenderness Extremity: Normal ROM Neurological/Psych: Oriented x3, Normal Motor, Normal Sensation ED Course And Treatment - Laboratory Results Urine POC: Negative O2 Sat by Pulse Oximetry: 98 Pulse Ox Interpretation: Normal Disposition Counseled Patient/Family Regarding: Studies Performed, Diagnosis, Need For Followup, Rx Given - Disposition Disposition: HOME/ ROUTINE Disposition Time: 23:12 Condition: STABLE Additional Instructions: Follow up with your [facility] for further evaluation and treatment. Return to the ER if you develop fever, vomiting, dizziness, worsening of symptoms or if you have any other concerns. Instructions: Acute Pelvic Pain (DC) Forms: [facility] (Cameroonian) - Clinical Impression Clinical Impression: Vaginal spotting, Pelvic pain
[2018-05-24 23:26] VITALS: BP 115/70; PULSE 58; RESP 16; TEMP 98.4; O2SAT 99
--- NOTE | 2018-05-25 16:26 | US ---
Date of service: 05/24/2018 PROCEDURE: HISTORY: Pelvic pain, vaginal spotting, h/o ovarian cysts. Urine HCG level negative. History of miscarriage COMPARISON: No prior pelvic ultrasounds available. TECHNIQUE: Transabdominal and transvaginal. FINDINGS: Uterus is anteverted. Measuring 9.4 x 4.5 x 4.6 cm. No uterine masses seen. Endometrium unremarkable appearing at 5 mm. Cervix is unremarkable appearing. Small amount of cul-de-sac free fluid seen. Right ovary measures 2.6 x 2.1 x 2.5 cm. Normal Doppler flow seen. Left ovary measures 2.5 x 2.3 x 2.2 cm. Doppler flow present. IMPRESSION: Small amount of free fluid in the cul-de-sac. Unremarkable appearing uterus, endometrium and adnexa. Concordant results (preliminary interpretation) provided by [facility].
== END 2018-05-24 23:27 | disposition home or self-care (01) ==
LOC: C.ER 20:01
DX: R10.2 Pelvic and perineal pain (principal); N93.9 Abnormal uterine and vaginal bleeding, unspecified

== ENCOUNTER 2018-07-22 14:39 | Emergency (ER) | payer OTHER ==
[2018-07-22 14:39] VITALS: BMI 21.6
[2018-07-22 14:56] VITALS: BP 113/75; PULSE 91; RESP 16; TEMP 99; O2SAT 99
--- NOTE | 2018-07-22 15:56 | RAD ---
Date of service: 07/22/2018 HISTORY: Cough x 5 days COMPARISON: Comparison made with chest radiograph 01/16/2018. TECHNIQUE: Chest PA and lateral FINDINGS: LUNGS: No acute consolidation. There appears to be some minimal linear atelectasis left lower lung field. PLEURA: No significant pleural effusion identified. No pneumothorax apparent. CARDIOVASCULAR: Normal. OSSEOUS STRUCTURES: Questionable mild side bending to the left versus minor dextroscoliosis centered in the lower thoracic region. VISUALIZED UPPER ABDOMEN: Normal. OTHER FINDINGS: None. IMPRESSION: No acute consolidation. There appears to be some minimal linear atelectasis left lower lung field
--- NOTE | 2018-07-22 16:14 | C.PDOC ---
Time Seen by Provider: 07/22/18 15:10 Chief Complaint (Nursing): Cough, Cold, Congestion Past Medical History Vital Signs: Last Vital Signs Temp 99 F 07/22/18 14:54 Pulse 91 H 07/22/18 14:54 Resp 16 07/22/18 14:54 BP 113/75 07/22/18 14:54 Pulse Ox 99 07/22/18 14:54 - Medical History PMH: Asthma Denies: Chronic Kidney Disease Surgical History: Cholecystectomy (09/2017), Tonsillectomy (2015) Family History: States: Unknown Family Hx - Social History Hx Tobacco Use: Yes Hx Alcohol Use: Yes Hx Substance Use: Yes - Immunization History Hx Tetanus Toxoid Vaccination: No Hx Influenza Vaccination: Yes Hx Pneumococcal Vaccination: No ED Course And Treatment O2 Sat by Pulse Oximetry: 99 Disposition Counseled Patient/Family Regarding: Studies Performed, Diagnosis, Need For Followup - Disposition Referrals: Kt Rodriguez MD [Medical Doctor] - Disposition: HOME/ ROUTINE Disposition Time: 16:11 Condition: STABLE Additional Instructions: Jarrett Buchanan, thank you for letting us take care of you today. Return to the ER if your symptoms worsen, or if problems. Follow up with Dr. Rodriguez next week for a re-evaluation. Continue taking the antibiotics and other medications that were prescribed to you by Dr. Rodriguez. Your chest x-ray was normal today. Instructions: Upper Respiratory Infection (ED), Flu, Adult (DC) - Clinical Impression Clinical Impression: Bronchitis, Influenza-like illness
--- NOTE | 2018-07-24 22:02 | CARD ---
APPROVED REPORT Date of service: 07/22/2018 EKG Measurement Heart [id number] <Conclusion> Normal sinus rhythm Nonspecific T wave abnormality Abnormal ECG
== END 2018-07-22 16:30 | disposition home or self-care (01) ==
LOC: C.ER 14:39
DX: J11.1 Influenza due to unidentified influenza virus with other respiratory manifestations (principal); J40 Bronchitis, not specified as acute or chronic; Z72.0 Tobacco use

== ENCOUNTER 2019-01-10 00:10 | Emergency (ER) | payer OTHER ==
[2019-01-10 00:10] VITALS: BMI 21.6
[2019-01-10 00:24] VITALS: BP 115/73; PULSE 90; O2SAT 100
[2019-01-10] MEDS ORDERED: Oxycodone/Acetaminophen 5/325 mg Tab PO STA (00:48)
[2019-01-10] MEDS ORDERED: Oxycodone/Acetaminophen 5/325 mg Tab ONE (00:55)
--- NOTE | 2019-01-10 00:57 | C.PDOC ---
History Of Present Illness 28 year old female presents to the ED requesting new pain medications. Patient had a dental procedure done today, was prescribed Tylenol/Codeine for pain. Patient reports that after taking the medication she developed hives. Patient states this is the first time this happened as she has taken Codeine in the past. Patient denies fever, chills, facial swelling, rash. Time Seen by Provider: 01/10/19 00:27 Chief Complaint (Nursing): Dental Pain History Per: Patient History/Exam Limitations: no limitations Onset/Duration Of Symptoms: Hrs Current Symptoms Are (Timing): Still Present Quality: Positive for: "Pain" Recent travel outside of the [place]: No Additional History Per: Patient Past Medical History Reviewed: Historical Data, Nursing Documentation, Vital Signs Vital Signs: Last Vital Signs Temp Pulse 90 01/10/19 00:17 Resp 18 01/10/19 00:17 BP 115/73 01/10/19 00:17 Pulse Ox 100 01/10/19 00:17 - Medical History PMH: Asthma Denies: Chronic Kidney Disease Surgical History: Back Surgery (LAMINECTOMY), Cholecystectomy (09/2017), Tonsillectomy (2015) Family History: States: Unknown Family Hx - Social History Hx Tobacco Use: Yes Hx Alcohol Use: Yes Hx Substance Use: No - Immunization History Hx Tetanus Toxoid Vaccination: No Hx Influenza Vaccination: Yes Hx Pneumococcal Vaccination: No Review Of Systems Constitutional: Negative for: Fever, Chills ENT: Positive for: Mouth Pain, Mouth Swelling Respiratory: Negative for: Cough, Shortness of Breath Gastrointestinal: Negative for: Vomiting Skin: Negative for: Rash Neurological: Negative for: Headache, Dizziness Physical Exam - Physical Exam Appears: Non-toxic, No Acute Distress Skin: Normal Color, Warm, Dry, Rash (diffuse hives) Head: Atraumatic, Normacephalic, No Swelling (facial) Eye(s): bilateral: Normal Inspection, PERRL, EOMI Oral Mucosa: Moist Tongue: No Swelling Lips: No Swelling Teeth: Tender To Palpation Throat: Normal Neck: Normal ROM, Supple, No Other (swelling) Neurological/Psych: Oriented x3, Normal Speech, Normal Cognition Gait: Steady ED Course And Treatment O2 Sat by Pulse Oximetry: 100 (ON RA) Pulse Ox Interpretation: Normal Progress Note: Plan: - Benadryl 25 mg PO. - Prednisone 40 mg PO. - percocet 1 tab. Patient is resting comfortably, tolerating PO, has no shortness of breath, has no intra-oral swelling, no stridor. Patient notes that pruritus has improved.. Patient was advised to avoid potential allergens (DC T3), and to follow up with physician in 1-2 days. Reassessment Condition: Improved Disposition - Disposition Disposition: HOME/ ROUTINE Disposition Time: 00:54 Condition: STABLE Additional Instructions: Discontinue tylenol 3 Follow up with dentist Return to ER if worse Prescriptions: DiphenhydrAMINE [Benadryl] 25 mg PO QID #14 cap oxyCODONE/Acetaminophen [Percocet 5/325 mg Tab] 1 tab PO TID #6 tab predniSONE [Prednisone] 40 mg PO DAILY #6 tab Instructions: Hives (DC), Dental Pain (DC) Forms: [facility] (Citizen Of [place]) - Clinical Impression Clinical Impression: Urticaria, Pain, dental - PA / BAKER DOUGHNUT / Resident Statement MD/DO has reviewed & agrees with the documentation as recorded. - Scribe Statement The provider has reviewed the documentation as recorded by the Scribe Zoran Wheeler All medical record entries made by the Scribmahesh were at my direction and personally dictated by me. I have reviewed the chart and agree that the record accurately reflects my personal performance of the history, physical exam, medical decision making, and the department course for this patient. I have also personally directed, reviewed, and agree with the discharge instructions and disposition.
[2019-01-10 01:05] VITALS: RESP 20
== END 2019-01-10 01:04 | disposition home or self-care (01) ==
LOC: C.ER 00:10
DX: L50.9 Urticaria, unspecified (principal); K08.89 Other specified disorders of teeth and supporting structures; Z72.0 Tobacco use

== ENCOUNTER 2019-03-04 17:41 | Emergency (ER) | payer OTHER ==
[2019-03-04 17:55] VITALS: BMI 20.9
[2019-03-04 17:58] VITALS: BP 97/62; PULSE 74; RESP 18; TEMP 99.4; O2SAT 99
--- NOTE | 2019-03-04 18:24 | C.PDOC ---
History Of Present Illness 28 y/o female presents to the ER complaining of dizziness. Patient states that she had involuntary bilateral arm shaking yesterday, however she did not have the shaking today. Patient thinks that she might have had seizure. She was awake the whole time. Mother of patient witnessed the episode and saw her laying down on bed. Mother of patient reports that she has another daughter who history of partial seizures.Denies having headache,CP,SOB, nausea, and vomiting. Time Seen by Provider: 03/04/19 18:09 Chief Complaint (Nursing): Dizziness/Lightheaded History Per: Patient History/Exam Limitations: no limitations Onset/Duration Of Symptoms: Days Current Symptoms Are (Timing): Still Present Severity: Moderate Past Medical History Reviewed: Historical Data, Nursing Documentation, Vital Signs Vital Signs: Last Vital Signs Temp 99.4 F 03/04/19 17:54 Pulse 74 03/04/19 17:54 Resp 18 03/04/19 17:54 BP 97/62 L 03/04/19 17:54 Pulse Ox 99 03/04/19 17:54 Primary Care Provider: Kt Rodriguez - Medical History PMH: Asthma Denies: Chronic Kidney Disease Surgical History: Back Surgery (LAMINECTOMY), Cholecystectomy (09/2017), Tonsillectomy (2015) Family History: States: No Known Family Hx - Social History Hx Tobacco Use: Yes Hx Alcohol Use: Yes Hx Substance Use: Yes (marijauna) - Immunization History Hx Tetanus Toxoid Vaccination: No Hx Influenza Vaccination: Yes Hx Pneumococcal Vaccination: No Review Of Systems Except As Marked, All Systems Reviewed And Found Negative. Constitutional: Negative for: Fever, Chills Neurological: Positive for: Dizziness. Negative for: Headache Physical Exam - Physical Exam Appears: No Acute Distress, Other (black female) Skin: Normal Color, Warm, Dry Head: Atraumatic, Normacephalic Neck: Supple Chest: Symmetrical Cardiovascular: Rhythm Regular Respiratory: Normal Breath Sounds, No Rales, No Rhonchi, No Wheezing Gastrointestinal/Abdominal: Normal Exam, Soft, No Tenderness, No Guarding, No Rebound Neurological/Psych: Oriented x3, Normal Speech, Normal Motor, Normal Sensation ED Course And Treatment O2 Sat by Pulse Oximetry: 99 (RA) Pulse Ox Interpretation: Normal Medical Decision Making Medical Decision Making: bizarre story of involuntary arm and leg movements but retaining consciencness baseline fatigue normal neuro now not likely seizure activity opt f/u with PMD/Neuro/Psych Disposition Doctor Will See Patient In The: Office Counseled Patient/Family Regarding: Studies Performed, Diagnosis - Disposition Referrals: Cale Lopez MD [Medical Doctor] - Lashawn Rodriguez MD [Staff Provider] - Disposition: HOME/ ROUTINE Disposition Time: 18:24 Condition: GOOD Additional Instructions: continue normal meds outpatient follow-up w Psychiatry/Neurology/your PMD Instructions: Fatigue (DC) Forms: [facility] (Vietnamese) - Clinical Impression Clinical Impression: Fatigue - Scribe Statement The provider has reviewed the documentation as recorded by the Sonjaibe Alessandro Harvey Provider Attestation: All medical record entries made by the Scribe were at my direction and personally dictated by me. I have reviewed the chart and agree that the record accurately reflects my personal performance of the history, physical exam, medical decision making, and the department course for this patient. I have also personally directed, reviewed, and agree with the discharge instructions and disposition.
== END 2019-03-04 18:34 | disposition home or self-care (01) ==
LOC: C.ER 17:41
DX: R53.83 Other fatigue (principal)

== ENCOUNTER 2019-03-15 19:07 | Outpatient (CLI) | payer OTHER | END 2019-03-15 19:08 | disposition home or self-care (01) | LOC: C.SLEEP 19:08 | DX: G47.33 Obstructive sleep apnea (adult) (pediatric) (principal) ==